=== PATIENT | male | born 1960 | race African-American/Black ===

== ENCOUNTER 2021-02-21 09:28 | Emergency (ER) | payer BC ==
[2021-02-21 10:32] LABS: HEMOGLOBIN 16.7 gm/dl (14.0-17.5); RED BLOOD COUNT 5.16 M/UL (4.20-5.50); WHITE BLOOD COUNT 14.5 K/UL (4.5-11.0)
[2021-02-21 10:48] LABS: BUN/CREATININE RATIO 21 (0-10)
== END 2021-02-21 15:36 | disposition other institution (70) ==
LOC: ER1 09:28
PROVIDERS: Physician Assistant
DX: J36 Peritonsillar abscess (principal); E11.65 Type 2 diabetes mellitus with hyperglycemia; Z20.822 Contact with and (suspected) exposure to COVID-19
CPT/HCPCS: 70491; 80053; 83605; 85025; 87040; 87635; 96365; 96375; 99283; J0295; J1100; J7030; Q9963